=== PATIENT | female | born 1990 | race African-American/Black ===

== ENCOUNTER 2017-09-20 12:40 | Emergency (ER) | payer MEDICAID ==
[~2017-09-20] VITALS: Ht 152.4 cm; Wt 85.2 kg
[2017-09-20 12:43] VITALS: BP 120/67; TEMP 98.9
[2017-09-20] MEDS ORDERED: PRENATAL MVI PO (12:48)
[2017-09-20] MEDS ORDERED: LEVOXYL0.088 MG PO (12:48)
[2017-09-20] MEDS ORDERED: PROGESTERO50 MG/1 ML (12:49)
[2017-09-20] MEDS ORDERED: NORCO 325 MG-51 TAB PO (13:05)
[2017-09-20] MEDS ORDERED: PEN-VEE K500 MG PO (13:05)
[2017-09-20 14:37] VITALS: PULSE 99
== END 2017-09-20 14:38 | disposition home or self-care (01) ==
LOC: COL.ER 12:40
DX: O99.612 Diseases of the digestive system complicating pregnancy, second trimester (principal); K08.89 Other specified disorders of teeth and supporting structures; O99.282 Endocrine, nutritional and metabolic diseases complicating pregnancy, second trimester; E07.9 Disorder of thyroid, unspecified; Z87.891 Personal history of nicotine dependence; Z3A.24 24 weeks gestation of pregnancy

== ENCOUNTER 2017-09-30 16:58 | Outpatient (CLI) | payer MEDICAID ==
[~2017-09-30] VITALS: Ht 154.9 cm; Wt 85.9 kg
[~2017-09-30 16:58] MED LIST: LEVOXYL0.088 MG PO; NORCO 325 MG-51 TAB PO; PEN-VEE K500 MG PO; PRENATAL MVI PO; PROGESTERO50 MG/1 ML
[2017-09-30 17:09] VITALS: BP 115/64; PULSE 101; TEMP 98.4
[2017-09-30] MEDS ORDERED: PRENATAL1 TA7 PO (17:20)
[2017-09-30] MEDS ORDERED: LEVOXYL0.125 MG PO (17:20)
[2017-09-30] MEDS ORDERED: MAKENA250 MG/1 M IM (17:21)
[2017-09-30 18:27] LABS: BASO % 0.2 % (0.0-2.0); EOS # 0.1 (0.0-0.7); EOS % 0.8 % (0-4.0); GRAN # 7.8 (1.4-6.5); GRAN % 73.3 % (42.2-75.2); LYMPH # 1.7 (1.2-3.4); MEAN CELL VOLUME 95 fl (80.0-100.0); MEAN CORPUSCULAR HGB CONC 33 g/dl (33.0-37.0); MEAN PLATELET VOLUME 9.2 fl (7.4-10.4); MONO # 0.9 (0.1-0.6); MONO % 8.9 % (1.7-9.3); PLATELET COUNT 251 K/mm3 (130-400); RED BLOOD COUNT 3.51 M/mm3 (4.10-5.30); REDCELL DISTRIBUTION WIDTH-CV 12.9 % (11.5-14.5)
[2017-09-30 18:30] LABS: HEMATOCRIT 33.2 % (37.0-47.0); MEAN CORPUSCULAR HEMOGLOBIN 31 pg (27.0-31.0)
[2017-09-30 18:38] LABS: ALANINE AMINOTRANSFERASE 26 U/L (9-52); ALBUMIN 3.3 gm/dL (3.5-5.0); ALKALINE PHOSPHATASE 76 U/L (50-136); ANION GAP 10 mmol/L (7-16); AST,SGOT 18 U/L (15-37); BILIRUBIN,TOTAL < 0.1 mg/dL (0.0-1.0); BLOOD UREA NITROGEN 10 mg/dL (7-17); CALCIUM 9.4 mg/dL (8.4-10.2); CARBON DIOXIDE 22 mmol/L (22-30); CHLORIDE 104 mmol/L (98-107); CREATININE, serum 0.64 mg/dL (0.52-1.25); GLUCOSE 126 mg/dL (74-106); POTASSIUM 3.8 mmol/L (3.4-5.0); SODIUM 137 mmol/L (137-145); TOTAL PROTEIN 6.8 gm/dL (6.4-8.2)
[2017-09-30 18:59] LABS: COLLECTION METHOD CATHETER
[2017-09-30 19:00] VITALS: BP 132/68; PULSE 93
[2017-09-30 19:10] LABS: MUCOUS Present /lpf; PH 6 (5-8); SQUAMOUS EPITHELIAL 0-2 /hpf; URINE APPEARANCE Clear; URINE BACTERIA None Seen /hpf; URINE BILIRUBIN Negative (NEGATIVE); URINE BLOOD Negative (NEGATIVE); URINE COLOR Yellow; URINE GLUCOSE 3+ (NEGATIVE); URINE KETONE Negative (NEGATIVE); URINE LEUKOCYTE ESTERASE Negative (NEGATIVE); URINE NITRATE Negative (NEGATIVE); URINE PROTEIN(semi-quant) Negative (NEGATIVE); URINE RBC 0-2 /hpf; URINE UROBILINOGEN Negative (NEGATIVE); URINE WBC 0-2 /hpf
== END 2017-09-30 20:00 | disposition home or self-care (01) ==
LOC: LDRO 16:58
PROVIDERS: Obstetrics & Gynecology
DX: O99.89 Other specified diseases and conditions complicating pregnancy, childbirth and the puerperium (principal); R10.9 Unspecified abdominal pain; Z3A.25 25 weeks gestation of pregnancy

== ENCOUNTER 2017-10-15 03:23 | Emergency (ER) | payer MEDICAID ==
[~2017-10-15] VITALS: Ht 154.9 cm; Wt 77.3 kg
[~2017-10-15 03:23] MED LIST changes: +LEVOXYL0.125 MG PO; +MAKENA250 MG/1 M IM; +PRENATAL1 TA7 PO
[2017-10-15 04:14] LABS: BASO % 0.4 % (0.0-2.0); EOS # 0.1 (0.0-0.7); EOS % 1.3 % (0-4.0); GRAN # 7.2 (1.4-6.5); GRAN % 70.9 % (42.2-75.2); HEMOGLOBIN 11.5 g/dl (12.5-16.0); LYMPH # 1.9 (1.2-3.4); LYMPH % 18.7 % (20.0-51.0); MEAN CELL VOLUME 96 fl (80.0-100.0); MEAN CORPUSCULAR HEMOGLOBIN 31 pg (27.0-31.0); MEAN CORPUSCULAR HGB CONC 33 g/dl (33.0-37.0); MEAN PLATELET VOLUME 9.3 fl (7.4-10.4); MONO # 0.8 (0.1-0.6); MONO % 7.8 % (1.7-9.3); PLATELET COUNT 266 K/mm3 (130-400); RED BLOOD COUNT 3.66 M/mm3 (4.10-5.30); REDCELL DISTRIBUTION WIDTH-CV 13.2 % (11.5-14.5)
[2017-10-15 04:26] LABS: HEMATOCRIT 35.1 % (37.0-47.0)
[2017-10-15 04:33] LABS: ALBUMIN 3.5 gm/dL (3.5-5.0); BILIRUBIN,TOTAL 0.2 mg/dL (0.0-1.0); CALCIUM 9.4 mg/dL (8.4-10.2); CREATININE, serum 0.59 mg/dL (0.52-1.25); POTASSIUM 3.7 mmol/L (3.4-5.0); TOTAL PROTEIN 7.3 gm/dL (6.4-8.2)
[2017-10-15 04:39] LABS: COLLECTION METHOD CLEAN CATCH
[2017-10-15 04:48] LABS: MUCOUS Present /lpf; PH 6 (5-8); URINE APPEARANCE Clear; URINE BACTERIA None Seen /hpf; URINE BILIRUBIN Negative (NEGATIVE); URINE BLOOD Negative (NEGATIVE); URINE COLOR Straw; URINE GLUCOSE 1+ (NEGATIVE); URINE KETONE Negative (NEGATIVE); URINE LEUKOCYTE ESTERASE Negative (NEGATIVE); URINE NITRATE Negative (NEGATIVE); URINE PROTEIN(semi-quant) Negative (NEGATIVE); URINE RBC None Seen /hpf; URINE UROBILINOGEN Negative (NEGATIVE)
[2017-10-15 05:33] VITALS: BP 122/72; PULSE 90; TEMP 97.6
== END 2017-10-15 05:42 | disposition home or self-care (01) ==
LOC: COL.ER 03:23
PROVIDERS: Emergency Medicine
DX: O26.893 Other specified pregnancy related conditions, third trimester (principal); O99.283 Endocrine, nutritional and metabolic diseases complicating pregnancy, third trimester; E03.9 Hypothyroidism, unspecified; R10.2 Pelvic and perineal pain; Z87.891 Personal history of nicotine dependence; Z3A.28 28 weeks gestation of pregnancy
CPT/HCPCS: J2765; J3010; J7030

== ENCOUNTER → 2017-10-25 | Outpatient (CLI) | payer MEDICAID | LOC: SUN.DIA 10:21 | DX: O24.419 Gestational diabetes mellitus in pregnancy, unspecified control (principal); Z3A.30 30 weeks gestation of pregnancy; Z71.3 Dietary counseling and surveillance; Z87.891 Personal history of nicotine dependence | CPT/HCPCS: G0108 ==

== ENCOUNTER → 2017-11-04 | Outpatient (CLI) | payer MEDICAID | LOC: SUN.DIA 08:29 | DX: O24.414 Gestational diabetes mellitus in pregnancy, insulin controlled (principal); Z3A.31 31 weeks gestation of pregnancy; Z71.3 Dietary counseling and surveillance; Z87.891 Personal history of nicotine dependence | CPT/HCPCS: G0108 ==

== ENCOUNTER → 2017-11-18 | Outpatient (CLI) | payer MEDICAID | LOC: SUN.DIA 09:02 | DX: O24.414 Gestational diabetes mellitus in pregnancy, insulin controlled (principal); Z3A.33 33 weeks gestation of pregnancy; Z71.3 Dietary counseling and surveillance; Z87.891 Personal history of nicotine dependence | CPT/HCPCS: G0108 ==

== ENCOUNTER → 2017-11-24 | Outpatient (CLI) | payer MEDICAID | LOC: SUN.DIA 10:27 | DX: O24.414 Gestational diabetes mellitus in pregnancy, insulin controlled (principal); Z3A.34 34 weeks gestation of pregnancy; Z71.3 Dietary counseling and surveillance; Z87.891 Personal history of nicotine dependence | CPT/HCPCS: G0108 ==

== ENCOUNTER → 2017-12-08 | Outpatient (CLI) | payer MEDICAID | LOC: SUN.DIA 10:28 | DX: O24.414 Gestational diabetes mellitus in pregnancy, insulin controlled (principal); Z3A.36 36 weeks gestation of pregnancy; Z87.891 Personal history of nicotine dependence | CPT/HCPCS: G0108 ==

== ENCOUNTER 2017-12-20 06:42 | Inpatient (IN) | payer MEDICAID ==
[~2017-12-20] VITALS: Ht 152.4 cm; Wt 89.5 kg
[2017-12-30] VITALS (26 sets, daily range): BP systolic 118–172; BP diastolic 61–114; PULSE 76–112; TEMP 97.2–98.2
[2017-12-30] MEDS ORDERED: INSULIN HUMA100 U/ML SQ (08:21)
[2017-12-30 09:52] LABS: BASO % 0.3 % (0.0-2.0); EOS # 0.1 (0.0-0.7); EOS % 1.4 % (0-4.0); GRAN # 7.4 (1.4-6.5); HEMOGLOBIN 10.9 g/dl (12.5-16.0); LYMPH # 1.8 (1.2-3.4); MEAN CELL VOLUME 90 fl (80.0-100.0); MEAN CORPUSCULAR HEMOGLOBIN 30 pg (27.0-31.0); MEAN CORPUSCULAR HGB CONC 33 g/dl (33.0-37.0); MEAN PLATELET VOLUME 9.6 fl (7.4-10.4); MONO # 0.6 (0.1-0.6); MONO % 5.7 % (1.7-9.3); PLATELET COUNT 265 K/mm3 (130-400); RED BLOOD COUNT 3.65 M/mm3 (4.10-5.30); REDCELL DISTRIBUTION WIDTH-CV 14.6 % (11.5-14.5)
[2017-12-30 09:53] LABS: HEMATOCRIT 32.7 % (37.0-47.0)
[2017-12-30 14:48] LABS: TRICYCLIC ANTIDEPRESS URINE NEGATIVE
[2017-12-31 01:05] VITALS: BP 128/72; PULSE 82; TEMP 98.2
[2017-12-31 06:40] VITALS: BP 1140/90; PULSE 63; TEMP 98.6
[2017-12-31 19:30] VITALS: BP 130/68; PULSE 81; TEMP 98.1
[2018-01-01 04:00] VITALS: BP 131/89; PULSE 80; TEMP 98.3
[2018-01-01 08:38] VITALS: BP 124/76; PULSE 76; TEMP 98.3
[2018-01-01] MEDS ORDERED: PERCOCET 325 MG1 TA2 PO (09:13)
[2018-01-01] MEDS ORDERED: MOTRIN 800800 MG/TAB PO (09:13)
== END 2018-01-01 10:45 | disposition home or self-care (01) | DRG 775 ==
LOC: LDR 06:42 → OB 12-30 07:54 → LDR 12-30 07:54 → OB 12-30 14:30
PROVIDERS: Obstetrics & Gynecology
PROC: 10E0XZZ Delivery of Products of Conception, External Approach (ICD-10-PCS; principal; 2017-12-30)
PROC: 10907ZC Drainage of Amniotic Fluid, Therapeutic from Products of Conception, Via Natural or Artificial Opening (ICD-10-PCS; 2017-12-30)
PROC: 3E033VJ Introduction of Other Hormone into Peripheral Vein, Percutaneous Approach (ICD-10-PCS; 2017-12-30)
DX: O36.5930 Maternal care for other known or suspected poor fetal growth, third trimester, not applicable or unspecified (principal); Z3A.38 38 weeks gestation of pregnancy; Z37.0 Single live birth; O24.424 Gestational diabetes mellitus in childbirth, insulin controlled; O99.284 Endocrine, nutritional and metabolic diseases complicating childbirth; E03.9 Hypothyroidism, unspecified; O99.344 Other mental disorders complicating childbirth
CPT/HCPCS: J2540; J2590; J7120

== ENCOUNTER → 2018-03-30 | Outpatient (CLI) | payer MEDICAID ==
[~2018-03-30] MED LIST changes: +INSULIN HUMA100 U/ML SQ; +MOTRIN 800800 MG/TAB PO; +PERCOCET 325 MG1 TA2 PO
== END ==
LOC: MC.RAD 09:14
DX: N64.4 Mastodynia (principal)

== ENCOUNTER 2018-08-28 14:52 | Emergency (ER) | payer MEDICAID ==
[~2018-08-28] VITALS: Ht 152.4 cm; Wt 84.5 kg
[2018-08-28 15:03] VITALS: BP 133/91; TEMP 100
[2018-08-28 16:25] LABS: BASO % 0.5 % (0.0-2.0); GRAN # 3.2 (1.4-6.5); GRAN % 74.5 % (42.2-75.2); HEMATOCRIT 41.1 % (37.0-47.0); HEMOGLOBIN 13.6 g/dl (12.5-16.0); LYMPH # 0.5 (1.2-3.4); LYMPH % 12.3 % (20.0-51.0); MEAN CELL VOLUME 93 fl (80.0-100.0); MEAN CORPUSCULAR HEMOGLOBIN 31 pg (27.0-31.0); MEAN CORPUSCULAR HGB CONC 33 g/dl (33.0-37.0); MEAN PLATELET VOLUME 9.6 fl (7.4-10.4); MONO # 0.5 (0.1-0.6); MONO % 12.5 % (1.7-9.3); PLATELET COUNT 215 K/mm3 (130-400); REDCELL DISTRIBUTION WIDTH-CV 13.6 % (11.5-14.5)
[2018-08-28 16:39] LABS: ALBUMIN 4.2 gm/dL (3.5-5.0); BILIRUBIN,TOTAL 0.3 mg/dL (0.0-1.0); CALCIUM 9.4 mg/dL (8.4-10.2); CREATININE, serum 0.86 mg/dL (0.52-1.25); POTASSIUM 3.7 mmol/L (3.4-5.0); TOTAL PROTEIN 7.8 gm/dL (6.4-8.2)
[2018-08-28 16:50] LABS: COLLECTION METHOD CLEAN CATCH
[2018-08-28 17:01] LABS: MUCOUS Present /lpf; PH 5 (5-8); URINE APPEARANCE Hazy; URINE BACTERIA None Seen /hpf; URINE BILIRUBIN Negative (NEGATIVE); URINE BLOOD Negative (NEGATIVE); URINE COLOR Yellow; URINE GLUCOSE Negative (NEGATIVE); URINE KETONE Trace (NEGATIVE); URINE LEUKOCYTE ESTERASE Negative (NEGATIVE); URINE NITRATE Negative (NEGATIVE); URINE PROTEIN(semi-quant) 1+ (NEGATIVE); URINE RBC 0-2 /hpf
[2018-08-28] MEDS ORDERED: MONODOX100 PO (17:45)
[2018-08-28 17:48] VITALS: PULSE 86
== END 2018-08-28 17:52 | disposition home or self-care (01) ==
LOC: COL.ER 14:52
PROVIDERS: Nurse Practitioner Primary Care
DX: R59.1 Generalized enlarged lymph nodes (principal); L03.90 Cellulitis, unspecified; E03.9 Hypothyroidism, unspecified; F17.210 Nicotine dependence, cigarettes, uncomplicated; Z79.4 Long term (current) use of insulin

== ENCOUNTER 2018-09-07 10:29 | Emergency (ER) | payer MEDICAID ==
[~2018-09-07] VITALS: Ht 152.4 cm; Wt 85.0 kg
[~2018-09-07 10:29] MED LIST changes: +MONODOX100 PO
[2018-09-07 10:41] VITALS: BP 149/80
[2018-09-07] MEDS ORDERED: MYORISAN40 MG PO (11:13)
[2018-09-07] MEDS ORDERED: MONODOX100 PO (11:14)
[2018-09-07] MEDS ORDERED: MEDROL 4MG DOSPA4 MG PO (12:26)
[2018-09-07 13:12] VITALS: PULSE 65; TEMP 98.2
== END 2018-09-07 12:41 | disposition home or self-care (01) ==
LOC: COL.ER 10:29
DX: T78.40XA Allergy, unspecified, initial encounter (principal); L50.9 Urticaria, unspecified; E03.9 Hypothyroidism, unspecified; F17.210 Nicotine dependence, cigarettes, uncomplicated
CPT/HCPCS: J2930